=== PATIENT | male | born 1990 | race Caucasian/White ===

== ENCOUNTER 2020-07-29 21:45 | Emergency (ER) | payer MEDICAID ==
[~2020-07-29] VITALS: Ht 182.9 cm; Wt 98.0 kg
[2020-07-29] MEDS ORDERED: LORAZEPAM 2MG/ML CPJ IV STA (22:11)
[2020-07-29] MEDS ORDERED: SODIUM CHLORIDE 0.9% 1,000 ML IV ONE (22:15)
[2020-07-29 22:58] LABS: BASOPHILS % 0.5 % (0.0-2.0); EOSINOPHILS % 0.2 % (0.0-5.0); HEMATOCRIT. 43.6 % (42.0-52.0); HEMOGLOBIN. 15.3 g/dL (14.0-18.0); LYMPHOCYTES % 8.2 % (20.0-50.0); MEAN CORPUSCULAR HEMOGLOBIN 30.3 pg (28.0-32.0); MEAN CORPUSCULAR VOLUME 86.4 fL (80.0-94.0); MEAN PLATELET VOLUME 7.1 fl (7.4-10.4); MONOCYTES % 9.1 % (2.0-8.0); PLATELET 328 x1000/uL (130-400); RED BLOOD CELL COUNT 5.04 mill/uL (4.7-6.1); RED CELL DISTRIBUTION WIDTH 12.2 % (11.6-14.6)
[2020-07-29 23:04] LABS: CHLORIDE 105 mEq/L (98-107)
[2020-07-29 23:08] LABS: ETHANOL BLOOD < 10 mg/dL
[2020-07-30] MEDS ORDERED: POTASSIUM CHLORIDE 20MEQ TABLET SR PO ONE (01:15)
[2020-07-30 02:07] VITALS: BP 132/70
== END 2020-07-30 02:08 | disposition home or self-care (01) ==
LOC: ER 21:45
DX: T43.621A Poisoning by amphetamines, accidental (unintentional), initial encounter (principal); R00.2 Palpitations; F15.188 Other stimulant abuse with other stimulant-induced disorder; E87.6 Hypokalemia; Y92.89 Other specified places as the place of occurrence of the external cause
CPT/HCPCS: 36415; 80053; 80307; 80320; 80329; 85025; 93005; 96361; 96374; 99284; J2060; J7030; G0480